=== PATIENT | female | born 2000 | race Caucasian/White ===

== ENCOUNTER 2022-09-05 15:06 | Emergency (ER) | payer OTHER ==
[~2022-09-05] VITALS: Ht 165.1 cm; Wt 52.2 kg
[2022-09-05] MEDS ORDERED: PROAIR RESPICL90 MCG IH (15:16)
[2022-09-05] MEDS ORDERED: AZITHROMYCIN250 MG PO (15:39)
== END 2022-09-05 16:42 | disposition home or self-care (01) ==
LOC: EMR PED 15:06
DX: J02.9 Acute pharyngitis, unspecified (principal); Z88.0 Allergy status to penicillin